=== PATIENT | female | born 1995 | race Hispanic/Latino ===

== ENCOUNTER 2024-07-19 23:45 | Inpatient (IN) | payer SELFPAY ==
[2024-07-20] MEDS ORDERED: MORPHINE 4 MG/ML SYR ONE (00:16)
[2024-07-20] MEDS ORDERED: ONDANSETRON 4 MG/2 ML VIAL ONE ×2 (00:16→07:40)
[2024-07-20] MEDS ORDERED: NA CHLORIDE 0.9% 0 ML ONE ×2 (00:16→06:11)
[2024-07-20 01:24] LABS: Hemoglobin 7.4 g/dL (12.0-15.0); MCH 17.6 pg (27.0-35.0); MCHC 30.3 g/dL (32.0-36.0)
[2024-07-20 01:29] LABS: Specific Gravity 1.016 (1.005-1.030)
[2024-07-20 01:32] LABS: Absolute Eosinophils 0.3 K/uL (0-0.5); Absolute Lymphocytes (CBC) 1.7 K/uL (0.7-4.9); Absolute Monocytes 0.5 K/uL (0.1-1.3); Absolute Neutrophil 7.2 K/uL (1.8-8.0); Basophils % 0.4 % (0-1.3); Eosinophils % 2.7 % (0-4.4); Hematocrit 24.5 % (36.0-45.0); MCV 58.3 fL (80-100); MPV 8.4 fL (7.6-11.3); Monocytes % 5.1 % (3.3-12.3); Neutrophils % 73.8 % (41.7-73.7); Nucleated Red Blood Cells % 0.2 % (0-0); Platelets 260 thou/uL (152-406); Red Cell Distribution Width 18.6 % (12.1-15.2)
[2024-07-20 01:33] LABS: Albumin 3.8 g/dL (3.4-5.0); Anion Gap 7.2 mEq/L (5.0-15.0); Bilirubin Total 0.5 mg/dL (0.2-1.0); Potassium 3.2 mEq/L (3.5-5.1); Protein, Total 7.8 g/dL (6.4-8.2)
[2024-07-20 01:57] LABS: Specific Gravity 1.016 (1.005-1.030); Sqamous Epithelial <5 /HPF (None Seen); Urine Bacteria None Seen /HPF (<20); Urine Bilirubin NEGATIVE (Negative); Urine Blood Negative (Negative); Urine Clarity Clear (Clear); Urine Color Colorless (Yellow); Urine Culture Reflex Order NOT NEEDED; Urine Glucose NEGATIVE (Negative); Urine Ketones NEGATIVE (Negative); Urine Microscopic Reflex YN ORDER UMIC; Urine Mucus Slight /HPF (None Seen); Urine Nitrite NEGATIVE (Negative); Urine Protein NEGATIVE (Negative); Urine RBC None Seen /HPF (None Seen); Urine Urobilinogen Normal (Normal); Urine pH 7.5 (5.0-7.0)
--- NOTE | 2024-07-20 01:58 | RAD REPORT ---
EXAM: US Abdomen Limited, Gallbladder CLINICAL HISTORY: The patient is 29 years old and is Female; ABD PAIN TECHNIQUE: Real-time ultrasound of the right upper quadrant with image documentation. COMPARISON: No relevant prior studies available. FINDINGS: GALLBLADDER: Unremarkable. No gallstones. Negative sonographic Bell sign. No pericholecystic fluid or gallbladder wall thickening. COMMON BILE DUCT: Unremarkable as visualized. No stones. No dilation. IMPRESSION: Unremarkable gallbladder ultrasound. Electronically signed by: Alva Carrion MD 07/20/2024 01:29 AM [facility] Due to temporary technical issues with the PACS/Bomgaribe reporting system, reports are being signed by the in-house radiologist without review as a courtesy to ensure prompt reporting the interpreting radiologist is fully responsible for the content of the report. Transcribed Date/Time: 07/20/2024 1:57 AM
--- NOTE | 2024-07-20 02:56 | RAD REPORT ---
EXAM: CT Abdomen and Pelvis With Intravenous Contrast CLINICAL HISTORY: The patient is 29 years old and is Female; ABD PAIN TECHNIQUE: Axial computed tomography images of the abdomen and pelvis with intravenous contrast. Sagittal an d coronal reformatted images were created and reviewed. This CT exam was performed using one or more of the following dose reduction techniques: automated exposure control, adjustment of the mA a nd/or kV according to patient size, and/or use of iterative reconstruction technique. COMPARISON: No relevant prior studies available. FINDINGS: LUNG BASES: Unremarkable. No mass. No consolidation. ABDOMEN: LIVER: The liver is enlarged and mildly fatty. GALLBLADDER AND BILE DUCTS: No calcified stones. No ductal dilation. PANCREAS: No ductal dilation. No mass. SPLEEN: Unremarkable. ADRENALS: Unremarkable. No mass. KIDNEYS AND URETERS: Unremarkable. The kidneys enhance symmetrically. No obstructing renal or ure teral calculus is seen. No hydronephrosis or hydroureter. No perinephric fluid or stranding. STOMACH AND BOWEL: The stomach is minimally filled with fluid. The small bowel is relatively norm al in caliber. A moderate amount stool is present throughout the colon. There is no evidence of obstruction. PELVIS: APPENDIX: The appendix is thick-walled and dilated measuring up to 1.3 cm. Mild adjacent inflamma tion and enhancement of the appendiceal wall is noted. Findings are best appreciated on sagittal images 50 through 43. BLADDER: The bladder is moderately distended. REPRODUCTIVE: A fundal uterine fibroid is present. The ovaries and uterus are otherwise unremarka ble. ABDOMEN and PELVIS: INTRAPERITONEAL SPACE: Free fluid is present within the pelvis which is likely physiologic. No free air. BONES/JOINTS: No acute fracture. SOFT TISSUES: The soft tissues are normal. VASCULATURE: Unremarkable. No abdominal aortic aneurysm. LYMPH NODES: Unremarkable. No enlarged lymph nodes. IMPRESSION: Findings suggest acute appendicitis. No evidence of periappendiceal abscess or rupture. THIS REPORT CONTAINS FINDINGS THAT MAY BE CRITICAL TO PATIENT CARE: I communicated the above findings by telephone with Dr. Salomon Washington MD on 07/20/2024 2:52 AM [employer] ST[employer] COURTESY CLERK who demonstrated understanding of the above finding(s)/recommendation(s). Electronically signed by: Alva Carrion MD 07/20/2024 02:52 AM [employer] ST[employer] COURTESY CLERK RP Due to temporary technical issues with the [employer]/Powerscribe reporting system, reports are being vaughn d by the in-house radiologist without review as a courtesy to ensure prompt reporting the interpreting radiologist is fully responsible for the content of the report. Transcribed Date/Time: 07/20/2024 2:55 AM
[2024-07-20 02:58] LABS: Blood Morphology Comment NOTED (NOT SEEN); Microcytosis 2+; Ovalocytes 2+; Platelet Estimate ADEQ; White Blood Cell Scan OK (OK)
--- NOTE | 2024-07-20 03:14 | EDPHYS ---
Physician Documentation [facility] Name: Paige Herrera Age: 29 yrs Sex: Female : 1995 Arrival Date: 07/19/2024 Time: 23:45 Bed 16 Private MD: ED Physician Salomon Washington HPI: 07/20 00:04 This 29 yrs old Female presents to ER via Unassigned with complaints of sp4 Abdominal Pain. 03:02 29-year-old female who has history of anemia and menorrhagia, presents with acute onset sp4 right lower quadrant abdominal pain yesterday described as sharp stabbing and worsening. Patient has history of uterine fibroids and history of gallstones. . Historical: - Allergies: 00:05 No Known Allergies; lg3 - PMHx: 00:05 None; lg3 - PSHx: 00:05 None; lg3 - Immunization history:: Adult Immunizations up to date. - Infectious Disease History:: Denies. - Social history:: Smoking status: Patient denies any tobacco usage or history of. - Family history:: not pertinent. ROS: 03:09 Constitutional: Negative for fever, chills, and weight loss, positive right lower sp4 abdominal pain 03:09 All other systems are negative, Exam: 03:09 Constitutional: This is a well developed, well nourished patient who is awake, alert, sp4 and in no acute distress. Pale appearing Head/Face: Normocephalic, atraumatic. Eyes: Pupils equal round and reactive to light, extra-ocular motions intact. Lids and lashes normal. Conjunctiva and sclera are not injected. Cornea within normal limits. Periorbital areas with no swelling, redness, or edema. ENT: Nares patent. No nasal discharge, no septal abnormalities noted. Tympanic membranes are normal and external auditory canals are clear. Oropharynx with no redness, swelling, or masses, exudates, or evidence of obstruction, uvula midline. Mucous membranes moist. Neck: Trachea midline, no thyromegaly or masses palpated, and no cervical lymphadenopathy. Supple, full range of motion without nuchal rigidity, or vertebral point tenderness. Chest/axilla: Normal chest wall appearance and motion. Nontender with no deformity. No lesions are appreciated. Cardiovascular: Regular rate and rhythm with a normal S1 and S2. No gallops, murmurs, or rubs. Normal PMI, no JVD. No pulse deficits. Respiratory: Lungs have equal breath sounds bilaterally, clear to auscultation and percussion. No rales, rhonchi or wheezes noted. No increased work of breathing, no retractions or nasal flaring. Abdomen/GI: Soft, with normal bowel sounds. No distension or tympany. No guarding Positive for right lower quadrant abdominal tenderness with positive rebound Back: No spinal tenderness. No costovertebral tenderness. Skin: Warm, dry with normal turgor. Normal color with no rashes, no lesions, and no evidence of cellulitis. MS/ Extremity: Pulses equal, no cyanosis. Neurovascular intact. Full, normal range of motion. Neuro: Awake and alert, GCS 15, oriented to person, place, time, and situation. Cranial nerves II-XII grossly intact. Motor strength 5/5 in all extremities. Sensory grossly intact. Psych: Awake, alert, with orientation to person, place and time. Behavior, mood, and affect are within normal limits Vital Signs: 00:03 BP 119 / 55; Pulse 55; Resp 36; Temp 98.2(O); Pulse Ox 100% on R/A; Weight 61.23 kg lg3 (R); Height 5 ft. 3 in. (R); Pain 10/10; 03:20 BP 102 / 56; Pulse 73; Resp 20; Pulse Ox 100% on R/A; kj2 04:20 BP 95 / 52; Pulse 60; Resp 16; Pulse Ox 100% on R/A; kj2 05:09 BP 90 / 55; Pulse 62; Resp 18; Pulse Ox 100% on R/A; kj2 00:03 Body Mass Index 23.91 (61.23 kg, 160.02 cm) lg3 00:03 Pain Scale: Adult lg3 Raisa Coma Score: 03:09 Eye Response: spontaneous(4). Motor Response: obeys commands(6). Verbal Response: sp4 oriented(5). Total: 15. MDM: 00:25 Medical Screening Exam initiated sp4 02:56 ED course: COMPARISON: No relevant prior studies available. FINDINGS: LUNG BASES: sp4 Unremarkable. No mass. No consolidation. ABDOMEN: LIVER: The liver is enlarged and mildly fatty. GALLBLADDER AND BILE DUCTS: No calcified stones. No ductal dilation. PANCREAS: No ductal dilation. No mass. SPLEEN: Unremarkable. ADRENALS: Unremarkable. No mass. KIDNEYS AND URETERS: Unremarkable. The kidneys enhance symmetrically. No obstructing renal or ureteral calculus is seen. No hydronephrosis or hydroureter. No perinephric fluid or stranding. STOMACH AND BOWEL: The stomach is minimally filled with fluid. The small bowel is relatively normal in caliber. A moderate amount stool is present throughout the colon. There is no evidence of obstruction. PELVIS: APPENDIX: The appendix is thick-walled and dilated measuring up to 1.3 cm. Mild adjacent inflammation and enhancement of the appendiceal wall is noted. Findings are best appreciated on sagittal images 50 through 43. BLADDER: The bladder is moderately distended. REPRODUCTIVE: A fundal uterine fibroid is present. The ovaries and uterus are otherwise unremarkable. ABDOMEN and PELVIS: INTRAPERITONEAL SPACE: Free fluid is present within the pelvis which is likely physiologic. No free air. BONES/JOINTS: No acute fracture. SOFT TISSUES: The soft tissues are normal. VASCULATURE: Unremarkable. No abdominal aortic aneurysm. LYMPH NODES: Unremarkable. No enlarged lymph nodes. IMPRESSION: Findings suggest acute appendicitis. No evidence of periappendiceal abscess or rupture. THIS REPORT CONTAINS FINDINGS THAT MAYBE CRITICAL TO PATIENT CARE: I communicated the above findings by telephone with Dr. Salomon Washington MD on 07/20/2024 2:52 AM TELEGRAPHIC SERVICE DISPATCHER who demonstrated understanding of the above finding(s)/recommendation(s) . ED course: EXAM: US Abdomen Limited, Gallbladder CLINICAL HISTORY: The patient is 29 years old and is Female; ABD PAIN TECHNIQUE: Real-time ultrasound of the right upper quadrant with image documentation. COMPARISON: No relevant prior studies available. FINDINGS: GALLBLADDER: Unremarkable. No gallstones. Negative sonographic Bell sign. No pericholecystic fluid or gallbladder wall thickening. COMMON BILE DUCT: Unremarkable as visualized. No stones. No dilation. IMPRESSION: Unremarkable gallbladder ultrasound.. 03:11 Differential diagnosis: appendicitis, bowel obstruction, cholecystitis, Cholelithiasis, sp4 diverticulitis. Data reviewed: vital signs, nurses notes, lab test result(s), radiologic studies, CT scan, ultrasound. Consideration of Admission/Observation Escalation of care including admission/observation considered. ED course: CT apparently positive for dilated appendix 1.3 cm. Mild adjacent inflammation of the appendiceal wall consistent with acute appendicitis. General surgeon Dr. Rivera consulted. Patient stable for admission for appendectomy. 07/20 00:02 Order name: CBC with Diff; Complete Time: 03:04 sb4 07/20 00:02 Order name: CMP; Complete Time: 02:44 sb4 07/20 00:02 Order name: Lipase; Complete Time: 02:44 sb4 07/20 00:02 Order name: Test, Urine; Complete Time: 02:44 sb4 07/20 00:02 Order name: Urinalysis w/ reflexes; Complete Time: 02:44 sb4 07/20 00:40 Order name: CRP; Complete Time: 02:44 sp4 07/20 01:54 Order name: CBC Smear Scan; Complete Time: 03:04 EDNM 07/20 03:11 Order name: Type And Screen [facility] 07/20 03:11 Order name: PT-INR; Complete Time: 06:11 4 07/20 04:21 Order name: Urinalysis w/ reflexes EDNM 07/20 04:21 Order name: CBC with Automated Diff EDNM 07/20 04:21 Order name: CBC with Automated Diff EDMS 07/20 04:21 Order name: Comprehensive Metabolic Panel EDNM 07/20 04:21 Order name: Comprehensive Metabolic Panel [facility] 07/20 04:21 Order name: Magnesium EDNM 07/20 04:21 Order name: Magnesium [facility] 07/20 04:40 Order name: ABO/RH no charge; Complete Time: 06:11 EDNM 07/20 00:02 Order name: CT Abd/Pelvis - IV Contrast Only 4 07/20 00:39 Order name: US Abdomen Limited [facility] 07/20 04:21 Order name: CONS Physician Consult EDNM 07/20 00:02 Order name: IV Saline Lock; Complete Time: 00:30 sb4 07/20 00:02 Order name: Labs collected and sent; Complete Time: 00:30 sb4 07/20 03:05 Order name: NPO; Complete Time: 03:47 sp4 Administered Medications: 00:30 Drug: Ondansetron IVP 4 mg IVP once; over 2 minutes Route: IVP; Site: right antecubital;jb4 01:47 Follow up: Response: No adverse reaction; Marked relief of symptoms jb4 00:30 Drug: morphine IVP or IV 4 mg IVP once over 4 mins Route: IVP; Infused Over: 4 mins; jb4 Site: right antecubital; 01:47 Follow up: Response: No adverse reaction; Marked relief of symptoms jb4 00:30 Drug: NS 0.9% IV 1000 ml IV at 1 bolus Per protocol; to be given as a bolus over 60 jb4 minutes Route: IV; Rate: 1 bolus; Site: right antecubital; 01:46 Follow up: Response: No adverse reaction; Marked relief of symptoms; IV Status: jb4 Completed infusion; IV Intake: 1000ml 04:06 Drug: Piperacillin-Tazobactam IVPB 3.375 grams IVPB once over 60 mins; (mix in NS 100 kj2 mL) Route: IVPB; Infused Over: 60 mins; Site: right antecubital; 04:20 Drug: D5-1/2 NS with KCl IV 20 mEq/L 1000 ml IV at 100 ml/hr continuous Route: IV; kj2 Rate: 100 ml/hr; Site: right antecubital; Disposition Summary: 07/20/24 03:13 Hospitalization Ordered Notes: Hospitalization Status: Observation sp4 Provider: Lois Burdick sp4 Condition: Stable sp4 Problem: new sp4 Symptoms: have improved sp4 Bed/Room Type: Standard sp4 Location: [facility] ER HOLD(07/20/24 03:50) lg3 Room Assignment: ERHOLD-(07/20/24 03:50) lg3 Diagnosis - Unspecified acute appendicitis sp4 - Acute appendicitis without perforation sp4 Forms: - Medication Reconciliation Form sp4 - SBAR form sp4 - Leadership Thank You Letter sp4 Signatures: Dispatcher [employer] EDJayy Stevenson, RN RN jb4 Allison Mcpherson RN RN lg3 Jazzmine Brock PA-C PAShiloh sb4 Salomon Washington MD MD sp4 Ani Auguste RN RN kj2 Corrections: (The following items were deleted from the chart) 00:02 00:02 CBC+H.LAB.BRZ ordered. EDMS EDMS 00:02 00:02 COMPREHENSIVE METABOLIC PANEL+C.LAB.BRZ ordered. EDMS EDMS 00:02 00:02 LIPASE+C.LAB.BRZ ordered. EDMS EDMS 00:02 00:02 Test, Urine+UC.LAB.BRZ ordered. EDMS EDMS 00:02 00:02 Urinalysis+U.LAB.BRZ ordered. EDMS EDMS 00:40 00:40 C-REACTIVE PROTEIN+C.LAB.BRZ ordered. EDMS EDMS 03:11 03:11 TYPE AND SCREEN+BB.LAB.BRZ ordered. EDMS EDMS 03:11 03:11 PROTIME (+INR)+COAG.LAB.BRZ ordered. EDMS EDMS 03:50 03:13 Telemetry/MedSurg (observation) sp4 lg3 03:50 03:13 sp4 lg3
--- NOTE | 2024-07-20 03:14 | ER ---
Nurse's Notes [facility] Name: Paige Herrera Age: 29 yrs Sex: Female : 1995 Arrival Date: 07/19/2024 Time: 23:45 Bed 16 Private MD: Diagnosis: Unspecified acute appendicitis;Acute appendicitis without perforation Presentation: 07/20 00:03 Chief complaint: Patient states: I started having right lower abdominal pain yesterday lg3 morning at 1040 am. It went away an came back. There was a sudden sharp pain and now its unbearable. Coronavirus screen: At this time, the client does not indicate any symptoms associated with coronavirus-19. Ebola Screen: No symptoms or risks identified at this time. Initial Sepsis Screen: Does the patient meet any 2 criteria? RR > 20 per min. Yes Does the patient have a suspected source of infection? No. Patient's initial sepsis screen is negative. Risk Assessment: Do you want to hurt yourself or someone else? Patient reports no desire to harm self or others. Onset of symptoms was July 18, 2024. Transition of care: patient was not received from another setting of care. 00:03 Method Of Arrival: Ambulatory lg3 00:03 Acuity: VINICIO 3 lg3 Triage Assessment: 00:05 General: Appears in no apparent distress. uncomfortable, Behavior is calm, cooperative, lg3 appropriate for age. Pain: Complains of pain in right lower quadrant Pain does not radiate. Pain currently is 10 out of 10 on a pain scale. Quality of pain is described as sharp, Pain began 07/18/24. Neuro: Level of Consciousness is awake, alert, obeys commands, Oriented to person, place, time, situation. Cardiovascular: Patient's skin is warm and dry. Respiratory: Airway is patent Respiratory effort is even, unlabored, Respiratory pattern is regular, symmetrical. GI: Abdomen is flat, non-distended, Abd is soft X 4 quads Abd is non tender in right upper quadrant, left upper quadrant and left lower quadrant Abdomen is tender to palpation in right lower quadrant Reports lower abdominal pain. Derm: Skin is intact, Skin is pink, warm \T\ dry. Musculoskeletal: Circulation, motion, and sensation intact. Range of motion: intact in all extremities. Historical: - Allergies: 00:05 No Known Allergies; lg3 - PMHx: 00:05 None; lg3 - PSHx: 00:05 None; lg3 - Immunization history:: Adult Immunizations up to date. - Infectious Disease History:: Denies. - Social history:: Smoking status: Patient denies any tobacco usage or history of. - Family history:: not pertinent. Screenin:43 [facility] ED Fall Risk Assessment (Adult) History of falling in the last 3 months, jb4 including since admission No falls in past 3 months (0 pts) Confusion or Disorientation No (0 pts) Intoxicated or Sedated No (0 pts) Impaired Gait No (0 pts) Mobility Assist Device Used No (0 pt) Altered Elimination No (0 pt) Score/Fall Risk Level 0 - 2 = Low Risk Oriented to surroundings, Maintained a safe environment. Abuse screen: Denies threats or abuse. Nutritional screening: No deficits noted. Tuberculosis screening: No symptoms or risk factors identified. Assessment: 00:43 Reassessment: see triage note. jb4 02:18 Reassessment: Patient appears in no apparent distress at this time. Patient and/or jb4 family updated on plan of care and expected duration. Pain level reassessed. Patient is alert, oriented x 3, equal unlabored respirations, skin warm/dry/pink. 03:20 Reassessment: Patient appears in no apparent distress at this time. Patient and/or kj2 family updated on plan of care and expected duration. Pain level reassessed. Patient is alert, oriented x 3, equal unlabored respirations, skin warm/dry/pink. 04:20 Reassessment: Patient appears in no apparent distress at this time. Patient and/or kj2 family updated on plan of care and expected duration. Pain level reassessed. Patient is alert, oriented x 3, equal unlabored respirations, skin warm/dry/pink. 05:09 Reassessment: Patient appears in no apparent distress at this time. Patient and/or kj2 family updated on plan of care and expected duration. Pain level reassessed. Patient is alert, oriented x 3, equal unlabored respirations, skin warm/dry/pink. Vital Signs: 00:03 BP 119 / 55; Pulse 55; Resp 36; Temp 98.2(O); Pulse Ox 100% on R/A; Weight 61.23 kg lg3 (R); Height 5 ft. 3 in. (R); Pain 05/19; 03:20 BP 102 / 56; Pulse 73; Resp 20; Pulse Ox 100% on R/A; kj2 04:20 BP 95 / 52; Pulse 60; Resp 16; Pulse Ox 100% on R/A; kj2 05:09 BP 90 / 55; Pulse 62; Resp 18; Pulse Ox 100% on R/A; kj2 00:03 Body Mass Index 23.91 (61.23 kg, 160.02 cm) lg3 00:03 Pain Scale: Adult lg3 Raisa Coma Score: 03:09 Eye Response: spontaneous(4). Motor Response: obeys commands(6). Verbal Response: sp4 oriented(5). Total: 15. ED Course: 07/19 23:47 Patient arrived in ED. ra3 07/20 00:04 Salomon Washington MD is Attending Physician. sp4 00:05 Triage completed. lg3 00:05 Arm band placed on right wrist. lg3 00:43 Patient has correct armband on for positive identification. Bed in low position. Call jb4 light in reach. Side rails up X 1. Provided Education on: plan of care. 00:43 No provider procedures requiring assistance completed. jb4 01:05 US Abdomen Limited In Process Unspecified. EDMS 01:05 Radiology exam delayed due to test not completed at this time. IV insertion jc4 attempt and/or patient not having appropriate IV at this time. 01:57 CT Abd/Pelvis - IV Contrast Only In Process Unspecified. EDMS 03:12 Lois Burdick MD is Hospitalizing Provider. sp4 03:24 Ani Auguste RN is Primary Nurse. kj2 05:10 Inserted. kj2 Administered Medications: 00:30 Drug: Ondansetron IVP 4 mg IVP once; over 2 minutes Route: IVP; Site: right antecubital;jb4 01:47 Follow up: Response: No adverse reaction; Marked relief of symptoms jb4 00:30 Drug: morphine IVP or IV 4 mg IVP once over 4 mins Route: IVP; Infused Over: 4 mins; jb4 Site: right antecubital; 01:47 Follow up: Response: No adverse reaction; Marked relief of symptoms jb4 00:30 Drug: NS 0.9% IV 1000 ml IV at 1 bolus Per protocol; to be given as a bolus over 60 jb4 minutes Route: IV; Rate: 1 bolus; Site: right antecubital; 01:46 Follow up: Response: No adverse reaction; Marked relief of symptoms; IV Status: jb4 Completed infusion; IV Intake: 1000ml 04:06 Drug: Piperacillin-Tazobactam IVPB 3.375 grams IVPB once over 60 mins; (mix in NS 100 kj2 mL) Route: IVPB; Infused Over: 60 mins; Site: right antecubital; 04:20 Drug: D5-1/2 NS with KCl IV 20 mEq/L 1000 ml IV at 100 ml/hr continuous Route: IV; kj2 Rate: 100 ml/hr; Site: right antecubital; Medication: 00:43 VIS not applicable for this client. jb4 Intake: 01:46 IV: 1000ml; Total: 1000ml. jb4 Outcome: 03:13 Decision to Hospitalize by Provider. sp4 07:42 Patient left the ED. ph Signatures: Dispatcher [employer] EDPrincess Sarkar, RN RN Jayy Quiroga, RN RN jb4 Allison Mcpherson RN RN lg3 Salomon Washington MD MD sp4 Julita Meza Justin jc4 Ani Auguste, RN RN kj2
[2024-07-20] MEDS ORDERED: NA CHLORIDE 0.9% 100 ML ONE (03:53)
[2024-07-20] MEDS ORDERED: PIPERACIL/TAZO 3.375 GM VIAL IV ONE (03:53)
[2024-07-20 04:06] LABS: PT Prothrombin Time 15.9 SECONDS (9.4-12.5); Protime INR 1.43
[2024-07-20] MEDS ORDERED: ONDANSETRON 4 MG/2 ML VIAL IV PRN (04:15)
[2024-07-20] MEDS ORDERED: ACETAMINOPHEN 325 MG TABLET PO PRN (04:15)
--- NOTE | 2024-07-20 04:15 | P.HP ---
Certification for Inpatient Patient admitted to: Inpatient With expected LOS: >2 Midnights Practitioner: I am a practitioner with admitting privileges, knowledge of patient current condition, hospital course, and medical plan of care. Services: Services provided to patient in accordance with Admission requirements found in Title 42 Section 412.3 of the Code of Federal Regulations Patient History Date of Service: 07/20/24 Reason for admission: appendicitis History of Present Illness: 29 yo female presented to the ER with 1 day history of right lower quadrant abdominal pain. Described as intermittent and throbbing. She denies any recent fevers or diarrhea. she does have chills Imaging done in the ER the clinic CT scan suggestive of acute appendicitis. She was also noted to be significantly anemic. reports history of anemia. states she just finished her period and it is generally heavy. she has not seen ACID CONCENTRATOR for this previously. General surgery was contacted and recommended admission. Allergies No Known Allergies Allergy (Unverified 07/20/24 04:50) Review of Systems 10-point ROS is otherwise unremarkable Gastrointestinal: Abdominal Pain Physical Examination - Physical Exam General: Alert HEENT: Atraumatic, Normocephalic Respiratory: Clear to auscultation bilaterally, Normal air movement Cardiovascular: Normal pulses, Regular rate/rhythm Gastrointestinal: Tenderness (lower abdomen, mostly on right side ) Integumentary: No rashes - Studies Laboratory Data (last 24 hrs) 07/20/24 07/20/24 07/20/24 03:40 00:24 00:24 WBC 9.70 Hgb 7.4 L Hct 24.5 L Plt Count 260 PT 15.9 H INR 1.43 Sodium 137 Potassium 3.2 L BUN 10 Creatinine 0.51 L Glucose 96 Total Bilirubin 0.5 AST 14 L ALT 25 Alkaline Phosphatase 51 Lipase 23 Assessment and Plan - Problems (Diagnosis) (1) Appendicitis Current Visit: Yes Status: Acute (2) Microcytic anemia Current Visit: Yes Status: Acute (3) Hypokalemia Current Visit: Yes Status: Acute - Plan 29-year-old female presents with 1 day history of right lower quadrant abdominal pain. #acute appendicitis --admit to med surg --ivf, npo --iv zosyn --surgery consult #microcytic anemia --reported history of anemia, heavy periods --transfuse for hgb < 7 --consider iron studies, and iron infusion. she may benefit from global transportation manager and heme consult #hypokalemia --replace and recheck --check mg with am labs DVT:SCDs - Advance Directives Does patient have a Living Will: No Does patient have a Durable POA for Healthcare: No
[2024-07-20] MEDS ORDERED: D5.45NS W/KCL 20MEQ 1,000 ML IV ONE (04:21)
[2024-07-20] MEDS: KCL 20 MEQ/100 mL IVPB 20 MEQ/100 ML BAG IV SCH (05:00)
[2024-07-20] MEDS: NA CHLORIDE 0.9% 1,000 ML IV SCH (05:00)
[2024-07-20] MEDS ORDERED: KCL 20 MEQ/100 mL IVPB 0 ML IV ONE (06:02)
[2024-07-20] MEDS ORDERED: NA CHLORIDE 0.9% 1,000 ML ONE (06:02)
[2024-07-20 06:41] VITALS: BMI 23.7
[2024-07-20] MEDS: FLU (Fluarix Triv) TS24-25(6MOS UP)/PF 45 MCG/0.5 ML Syringe IM ONE (07:30)
[2024-07-20] MEDS ORDERED: ROCURONIUM 50 MG/5 ML VIAL IV ONE (07:40)
[2024-07-20] MEDS ORDERED: FENTANYL CITR 100 MCG/2 ML ONE ×2 (07:40→09:35)
[2024-07-20] MEDS ORDERED: MIDAZOLAM HCL 2 MG/2 ML INJ ONE (07:40)
[2024-07-20] MEDS ORDERED: LIDOCAINE 2% MPF 5 ML VIAL ONE (07:40)
[2024-07-20] MEDS ORDERED: propofoL 200 MG/20 ML VIAL IV ONE (07:40)
[2024-07-20] MEDS: Ringers Lactate 1,000 ML IV ONE (08:10)
--- NOTE | 2024-07-20 08:37 | P.CNS ---
Date of Consult: 07/20/24 Reason for consult: Abdominal pain History of present illness: Patient is a 29-year-old female presents to the emergency room with 1 day history of periumbilical abdominal pain localizing to the right lower quadrant. Patient denies any nausea, vomiting, fever or chills, diarrhea, constipation, blood per rectum, dysuria or hematuria. Patient has some anorexia. Patient denies sore throat, runny nose, cough, headaches, dizziness or chest pain. Patient has heavy periods and has not seen a doctor regarding that. Review of systems: Otherwise unremarkable Past medical history: Negative Past surgical history: Negative Allergies: No allergies Social history: Patient does not smoke or drink alcohol Family history: Noncontributory Vital signs: Stable, afebrile Physical exam: Awake, alert and oriented x 3 Head and neck exam: No neck masses, no JVD, throat clear and neck supple Chest: Clear Heart: S1-S2 Abdomen: Soft, nondistended, positive bowel sounds, positive Rovsing's sign and right lower quadrant tenderness with rebound with no rigidity or guarding Extremity: Neurovascular intact Neuro: Nonfocal Diagnostic data: Reviewed, hemoglobin 7.[address] of the abdomen pelvis consistent with acute appendicitis Assessment: Acute appendicitis and anemia Plan/recommendation: I discussed the case with the hospitalist team. We will get anemia workup started. We will type and screen the patient. Will proceed with laparoscopic appendectomy, possible open. Patient understands risk, benefits and alternatives and agrees to procedure. CC:
[2024-07-20] MEDS: PIPER TAZO 3.375 GM in NA CHLORIDE 0.9% 100 ML IV SCH (09:00)
[2024-07-20 09:02] LABS: Absolute Eosinophils 0.2 K/uL (0-0.5); Absolute Monocytes 0.5 K/uL (0.1-1.3); Absolute Neutrophil 4.2 K/uL (1.8-8.0); Basophils % 0.3 % (0-1.3); Eosinophils % 3.2 % (0-4.4); Hematocrit 22.9 % (36.0-45.0); Hemoglobin 6.9 g/dL (12.0-15.0); Lymphocytes % 28.6 % (15.3-44.8); MCH 17.6 pg (27.0-35.0); MCHC 29.9 g/dL (32.0-36.0); MCV 58.8 fL (80-100); MPV 8.3 fL (7.6-11.3); Monocytes % 7.4 % (3.3-12.3); Neutrophils % 60.5 % (41.7-73.7); Nucleated Red Blood Cells % 0.1 % (0-0); Percent Reticulocyte Count 0.93 % (0.4-2.05); Platelets 249 thou/uL (152-406); Red Cell Distribution Width 18.6 % (12.1-15.2)
[2024-07-20] MEDS ORDERED: dexAMETHasone 10 MG/ML VIAL ONE (09:06)
[2024-07-20] MEDS: BUPIVACAINE 0.5% PF 10 ML VIAL ONE (09:20)
[2024-07-20] MEDS ORDERED: NEOSTIGMINE 1 MG/ML -10 ML VIAL ONE (09:34)
[2024-07-20] MEDS ORDERED: GLYCOPYRROLATE 0.2 MG/ML SYR ONE (09:34)
--- NOTE | 2024-07-20 10:00 | P.OP ---
Date of Service: 07/20/24 Preop diagnosis: Acute appendicitis, anemia Postop diagnosis: Same Procedure performed: Laparoscopic appendectomy Surgeon: Maximiliano Rivera MD Reject Opener: None Estimated blood loss: Minimal Specimen: Appendix Findings: As above Anesthesia: General Complications: None Drains: None Fluids and blood products: Nonapplicable Disposition: Recovery room Operative note: Patient brought to the OR and placed in the supine position. General anesthesia began. Patient prepped and draped in usual sterile fashion. Marcaine 0.5% infiltrated locally. 15 blade used to make a 1 cm supraumbilical midline incision. Subcu tissue divided bleeding controlled cautery. Fascia identified and divided. #1 Vicryl stay suture placed. Peritoneal cavity entered with sharp and blunt dissection. 12 mm trocar placed into the peritoneal cavity under direct vision. Pneumoperitoneum established. Two 5 mm trocars placed under direct vision. 1 trocar placed in the suprapubic region and the other 1 placed in the left lower quadrant. Laparoscopy revealed some adhesions in the right lower quadrant. These adhesions were taken down with LigaSure. An inflamed appendix identified. Base of the appendix on the cecum and mesoappendix clearly identified. Mesoappendix taken care of with LigaSure. Endo DENZEL stapling device used to divide the base of the appendix on the cecum. The appendix was removed and placed in a Endo Catch bag. Endo Catch bag retrieved through the umbilicus. Right lower quadrant examined. No evidence of bleeding or bowel injury appreciated. Uterus ovary and other anatomy were within normal limits. No evidence of any other disease was identified. All trocars removed under direct vision. Stay sutures tied to each other to reapproximate the fascial defect. Subcutaneous wounds irrigated and bleeding controlled with cautery. 3-0 chromic used to reapproximate subcutaneous tissue and close skin. Sterile dressing applied. Patient awakened and taken to recovery room in good general condition. CC:
[2024-07-20 10:17] LABS: Band Neutrophils 1 % (0-1); Differential Total Cells Count 100; Eosinophils 6 % (0-3); Lymphocytes 25 % (15-42); Monocytes 7 % (0-10); Segmented Neutrophils 61 % (40-80); Slides for Pathologist Review DONE
[2024-07-20 10:18] LABS: Blood Morphology Comment NOTED (NOT SEEN); Hypochromasia 3+; Microcytosis 3+; Ovalocytes 1+; Platelet Estimate ADEQ; Teardrop Cell 2+
[2024-07-20] MEDS: ONDANSETRON 4 MG/2 ML VIAL ONE (10:32)
[2024-07-20] MEDS: HYDROMORPHONE HCL 1 MG/ML INJ ONE (10:33)
[2024-07-20] MEDS: NA CHLORIDE 0.9% 1,000 ML ONE (11:35)
[2024-07-20 16:39] LABS: Sqamous Epithelial <5 /HPF (None Seen); Urine Bacteria None Seen /HPF (<20); Urine Bilirubin NEGATIVE (Negative); Urine Blood 2+ (Negative); Urine Clarity Turbid (Clear); Urine Color Light-Yellow (Yellow); Urine Crystals Unidentified Few /HPF (None Seen); Urine Culture Reflex Order REFLEXED; Urine Glucose NEGATIVE (Negative); Urine Ketones 1+ (Negative); Urine Microscopic Reflex YN ORDER UMIC; Urine Nitrite NEGATIVE (Negative); Urine Protein NEGATIVE (Negative); Urine Urobilinogen Normal (Normal); Urine WBC Clump Rare /HPF (None Seen); Urine Yeast (Budding) Trace /HPF (None Seen); Urine pH 6.5 (5.0-7.0)
[2024-07-20] MEDS: HYDROCODONE/APAP 7.5/325 MG TAB PO PRN (20:25)
[2024-07-20 22:07] VITALS: O2SAT 99
[2024-07-21] MEDS: HYDROMORPHONE HCL 1 MG/ML INJ IV PRN (01:25)
[2024-07-21] MEDS ORDERED: NA CHLORIDE 0.9% 250 ML IV SCH (08:00)
[2024-07-21 09:38] LABS: Absolute Lymphocytes (CBC) 1.9 K/uL (0.7-4.9); Absolute Monocytes 0.5 K/uL (0.1-1.3); Absolute Neutrophil 6.3 K/uL (1.8-8.0); Basophils % 0.1 % (0-1.3); Hematocrit 22.5 % (36.0-45.0); Hemoglobin 6.4 g/dL (12.0-15.0); Lymphocytes % 21.6 % (15.3-44.8); MCH 17.1 pg (27.0-35.0); MCHC 28.6 g/dL (32.0-36.0); MCV 59.8 fL (80-100); MPV 9.2 fL (7.6-11.3); Monocytes % 5.6 % (3.3-12.3); Neutrophils % 72.7 % (41.7-73.7); Platelets 248 thou/uL (152-406); RBC Red Blood Cell Count 3.76 M/uL (3.86-4.86); Red Cell Distribution Width 18.2 % (12.1-15.2)
[2024-07-21 10:00] LABS: Albumin/Globulin Ratio 0.8 (1.1-1.8); Anion Gap 8.5 mEq/L (5.0-15.0); Bilirubin Total 0.3 mg/dL (0.2-1.0); Globulin 3.6 g/dL (2.3-3.5); Potassium 3.5 mEq/L (3.5-5.1); Protein, Total 6.6 g/dL (6.4-8.2)
--- NOTE | 2024-07-21 12:19 | PN ---
Date of Progress Note: 07/21/2024 Subjective: The patient is awake, alert. No complaint. Vitals stable, afebrile. She is tolerating diet, ambulating, pain controlled on p.o. pain medication. Her laboratory data reviewed. Her H and H are 6.4 and 22.5. The Hospitalist Team has ordered 1 unit of packed red blood cells. From surgic al standpoint, she is doing well. Objective: Vital Signs: Her vitals are stable. She is afebrile. Abdomen: Soft, nondistended, nontender. Positive bowel sounds. Assessment: Status post laparoscopic appendectomy. Recommendations: Await medical clearance prior to discharge from a surgical standpoint. Discharge i nstructions were given and the patient can follow up with me next week in the office. NAUN/EVELYNL Voice ID: [id number] Report ID: [id number]
--- NOTE | 2024-07-21 13:22 | P.DS ---
Admission Date: 07/20/24 Discharge Date: 07/21/24 Disposition: ROUTINE DISCHARGE Discharge Condition: GOOD Reason for Admission: appendicitis - Problems (1) Acute appendicitis Current Visit: Yes Status: Acute (2) Acute blood loss anemia Current Visit: Yes Status: Acute (3) Iron deficiency Current Visit: Yes Status: Acute Brief History of Present Illness: 29 yo female presented to the ER with 1 day history of right lower quadrant abdominal pain associated with chills. CT abdomen and pelvis done in the emergency department suggested acute appendicitis. She was also noted to be significantly anemic. Patient reports history of anemia and heavy menses. She stated she just finished her menses. She reported a known history of fibroid uterus. General surgery Dr. Rivera was contacted and patient admitted for further management. Hospital Course: Patient admitted to the medical floor, started on IV Zosyn. She was evaluated by general surgery Dr. Houston who performed lap cholecystectomy. Her hemoglobin dropped from 7.4-6.4. Patient was given a unit of PRBC transfusion. Iron profile checked before transfusion shows severe iron deficiency. Patient was monitored overnight and had no issues. She is tolerating diet and she is ambulating. She is deemed stable for discharge. Patient is prescribed Augmentin iron replacement therapy, and she is informed to follow-up with [facility] as outpatient. She is also informed to follow-up with Dr. Rivera within 1 week. Vital Signs/Physical Exam: Temp Pulse Resp BP Pulse Ox 98.6 F 58 16 107/51 L 100 07/21/24 08:00 07/21/24 08:00 07/21/24 08:00 07/21/24 08:00 07/21/24 08:00 General: Alert, In no apparent distress, Oriented x3 HEENT: Mucous membr. moist/pink Neck: Supple, JVD not distended Respiratory: Clear to auscultation bilaterally, Normal air movement Cardiovascular: No edema, Regular rate/rhythm, Normal S1 S2 Gastrointestinal: Normal bowel sounds, Soft and benign, Non-distended, Other (Clean trocar wounds.) Musculoskeletal: No swelling, No tenderness Integumentary: No rashes, No cyanosis Neurological: Normal speech, Normal strength at 5/5 x4 extr Laboratory Data at Discharge: WBC 8.70 thou/uL (4.3-10.9) 07/21/24 06:25 Hgb 6.4 g/dL (12.0-15.0) L 07/21/24 06:25 Hct 22.5 % (36.0-45.0) L 07/21/24 06:25 Plt Count 248 thou/uL (152-406) 07/21/24 06:25 PT 15.9 SECONDS (9.4-12.5) H 07/20/24 03:40 INR 1.43 07/20/24 03:40 Sodium 140 mEq/L (136-145) 07/21/24 06:25 Potassium 3.5 mEq/L (3.5-5.1) 07/21/24 06:25 BUN 7 mg/dL (7-18) 07/21/24 06:25 Creatinine 0.54 mg/dL (0.55-1.02) L 07/21/24 06:25 Glucose 116 mg/dL (74-106) H 07/21/24 06:25 Magnesium 2.0 mg/dL (1.6-2.4) 07/21/24 06:25 Total Bilirubin 0.3 mg/dL (0.2-1.0) 07/21/24 06:25 AST 18 U/L (15-37) 07/21/24 06:25 ALT 22 U/L (13-56) 07/21/24 06:25 Alkaline Phosphatase 46 U/L (45-117) 07/21/24 06:25 Lipase 23 U/L (13-75) 07/20/24 00:24 Home Medications: Amox/Clavulanate [Augmentin 875-125 Tab] 1 each PO BID #14 tab 07/21/24 traMADol HCL [Ultram*] 50 mg PO Q6H PRN #20 tab 07/21/24 New Medications: Amox/Clavulanate [Augmentin 875-125 Tab] 1 each PO BID #14 tab traMADol HCL [Ultram*] 50 mg PO Q6H PRN #20 tab PRN Reason: Pain Physician Discharge Instructions: Remove outer dressing in a.m. and shower Keep Steri-Strips on at all times Incentive spirometry as instructed Resume home meds and diet Activity as tolerated, no heavy lifting Follow-up my office 1 week, call for appointment Antibiotics and pain medicine per the hospitalist team Patient cleared from surgery for discharge Diet: Regular Activity: No lifting more than 10 lbs Followup: NONE,NONE [Primary Care Provider] - Maximiliano Rivera MD [ACTIVE - CAN ADMIT] - 1 Week Time spent managing pt's care (in minutes): 32
[2024-07-21 14:05] VITALS: BP 91/41; TEMP 98.5
[2024-07-21 15:04] LABS: Hematocrit 24.1 % (36.0-45.0); Hemoglobin 7.3 g/dL (12.0-15.0)
== END 2024-07-21 15:56 | disposition home or self-care (01) | DRG 398 ==
LOC: ER 23:45 → ERHOLD 07-20 04:15 → 2ND 07-20 11:35
PROVIDERS: ADMIT Internal Medicine; ATTEND Internal Medicine
PROC: 0DTJ4ZZ Resection of Appendix, Percutaneous Endoscopic Approach (ICD-10-PCS; principal; 2024-07-20 08:30)
PROC: 30233N1 Transfusion of Nonautologous Red Blood Cells into Peripheral Vein, Percutaneous Approach (ICD-10-PCS; 2024-07-21)
DX: K35.80 Unspecified acute appendicitis (principal); D62 Acute posthemorrhagic anemia; D50.9 Iron deficiency anemia, unspecified; E87.6 Hypokalemia
CPT/HCPCS: 36415; 36430; 74177; 76705; 80053; 81001; 81025; 82607; 83540; 83690; 83735; 84466; 85014; 85018; 85025; 85044; 85610; 86140; 86850; 86900; 86901; 86920; 87086; 87088; 88304; 94010; 96361; 96374; 96375; 99284; J1100; J1171; J2003; J2250; J2405; J2543; J2704; J2710; J3010; J3480; J7030; J7040; J7050; J7120; P9016; Q9967